=== PATIENT | female | born 1990 | race Caucasian/White ===

== ENCOUNTER 2019-02-17 09:59 | Day surgery (SDC) | payer BC, OTHER ==
[~2019-02-17] VITALS: Ht 165.1 cm; Wt 74.7 kg
[~2019-02-17 09:59] MED LIST: METHYLERGONOVINE 0.2 MG/ML IM ONE; MISOPROSTOL 200 MCG TABLET ONE; OXYTOCIN 10 UNITS/ML, 1ML ONE; VASOPRESSIN 20 UNIT/ML, 1ML ONE
[2019-02-17] MEDS ORDERED: SCOPOLAMINE PATCH, 1.5MG PATCH.TD72 TD ONE (10:00)
[2019-02-17] MEDS ORDERED: ACETAMINOPHEN 500 MG TABLET PO ONE (10:00)
[2019-02-17] MEDS ORDERED: GABAPENTIN 300 MG CAPSULE PO ONE (10:00)
[2019-02-17] MEDS ORDERED: DIAZEPAM 5 MG TABLET PO ONE (10:00)
[2019-02-17 10:34] VITALS: BP 115/81
[2019-02-17] MEDS ORDERED: OXYTOCIN 10 UNITS/ML, 1ML ONE ×2 (10:39→14:54)
[2019-02-17] MEDS ORDERED: SILVER NITRATE STICK TP ONE (10:39)
[2019-02-17 10:44] VITALS: BP 115/81
[2019-02-17] MEDS ORDERED: NONE PER PT (10:53)
[2019-02-17] MEDS ORDERED: LACTATED RINGERS 1,000 ML IV SCH (10:57)
[2019-02-17 11:23] LABS: BASOPHILS # (AUTO) 0.02 x10^3/uL (0-0.1); BASOPHILS % (AUTO) 0 % (0-1); EOSINOPHILS % (AUTO) 1 % (1-7); LYMPHOCYTES # (AUTO) 1.69 x10^3/uL (1-3.4); LYMPHOCYTES % (AUTO) 21 % (22-44); MD NO; MEAN CORPUSCULAR HEMOGLOBIN 30.6 pg (27.0-34.8); MEAN CORPUSCULAR VOLUME 89.9 fL (80-100); MONOCYTES # (AUTO) 0.31 x10^3/uL (0.2-0.8); MONOCYTES % (AUTO) 4 % (2-9); NEUTROPHILS % (AUTO) 74 % (42-75); PLATELET COUNT 176 x10^3/uL (130-400); RED BLOOD COUNT 4.52 x10^6/uL (3.82-5.3); RED CELL DISTRIBUTION WIDTH 11.7 % (9.6-15.2)
[2019-02-17] MEDS ORDERED: MIDAZOLAM 1 MG/ML, 2ML ONE (11:30)
[2019-02-17] MEDS ORDERED: FENTANYL PF 100 MCG/2ML ONE (11:30)
[2019-02-17 11:33] LABS: ALBUMIN 3.5 g/dL (3.4-5.0); ANION GAP 8 mmol/L (5-15); CHLORIDE 109 mmol/L (98-107)
[2019-02-17 11:47] LABS: MICROSCOPIC NOT IND
[2019-02-17 11:54] LABS: CULTURE INDICATED? NO
[2019-02-17 11:55] LABS: ALANINE AMINOTRANSFERASE 19 U/L (12-78); ALKALINE PHOSPHATASE 44 U/L (45-117); BILIRUBIN,TOTAL 1.3 mg/dL (0.2-1.0); CREATININE 0.52 mg/dL (0.55-1.02); TOTAL PROTEIN 7.1 g/dL (6.4-8.2)
[2019-02-17] MEDS ORDERED: ONDANSETRON 2MG/ML, 2ML ONE ×3 (12:04→12:58)
[2019-02-17] MEDS ORDERED: KETOROLAC 30 MG/1 ML ONE (12:04)
[2019-02-17] MEDS ORDERED: DEXAMETHASONE 4 MG/ML, 1ML ONE (12:04)
[2019-02-17] MEDS ORDERED: PROPOFOL 10 MG/ML, 20ML ONE ×2 (12:04→12:35)
[2019-02-17] MEDS ORDERED: MIDAZOLAM 1 MG/ML, 2ML IV PRN (12:30)
[2019-02-17] MEDS ORDERED: ALBUTEROL/IPRATROPIUM 2.5MG/0.5MG, 3 ML NPPB PRN (12:30)
[2019-02-17] MEDS ORDERED: PROMETHAZINE 25 MG/ML, 1ML IV PRN (12:30)
[2019-02-17] MEDS ORDERED: FENTANYL PF 100 MCG/2ML IV PRN (12:30)
[2019-02-17] MEDS ORDERED: MEPERIDINE/PF 25MG/0.5ML IVPush PRN (12:30)
[2019-02-17] MEDS ORDERED: DIAZEPAM 5 MG/ML, 2ML IVPush PRN (12:30)
[2019-02-17] MEDS ORDERED: ACETAMINOPHEN 325 MG TABLET PO PRN (12:30)
[2019-02-17] MEDS ORDERED: SCOPOLAMINE PATCH, 1.5MG PATCH.TD72 TD PRN (12:30)
[2019-02-17] MEDS ORDERED: HYDROmorphone 2 MG/ML, 1ML IVPush PRN (12:30)
[2019-02-17] MEDS ORDERED: OXYcodone 5 MG/5 ML ORAL.SOL UDC PO PRN (12:30)
[2019-02-17] MEDS ORDERED: ONDANSETRON 2MG/ML, 2ML IV PRN (12:30)
[2019-02-17] MEDS ORDERED: OXYcodone 5 MG/5 ML ORAL.SOL UDC ONE (12:58)
== END 2019-02-17 14:55 | disposition home or self-care (01) ==
LOC: OUT 09:59
PROVIDERS: ATTEND Obstetrics & Gynecology
DX: O02.1 Missed abortion (principal); Z3A.09 9 weeks gestation of pregnancy
CPT/HCPCS: 36415; 59820; 80053; 81003; 84703; 85025; 86850; 86900; 88305; J1100; J1885; J2250; J2405; J2590; J2704; J3010; 88300; J2210